=== PATIENT | male | born 1985 | race Caucasian/White ===

== ENCOUNTER 2016-08-16 05:19 | Emergency (ER) | payer OTHER ==
[~2016-08-16] VITALS: Ht 188 cm; Wt 127.2 kg
--- OUTSIDE RECORDS SUMMARY | 2016-08-16 05:25 | XMS REPORT | Continuity of Care Document ---
Author Author [facility] Organization [facility] Address Unknown Phone Unavailable Support Name Relationship Address Phone LAN SAM MD Caregiver [address] [place] [id number] MEERA LONDON MD Caregiver [address] [place] [address] FOSTER MUNIZ MD Caregiver [address] [place] [address] LEIDY CUELLAR Next Of Kin [address] [place] [id number] Insurance Providers Payer Name Policy Number Subscriber Name Relationship [employer] [id number] Zuleika Cuellar 17 Self / Same As Patient Problems No known problems or medical conditions. Medications No known medications. Social History No social history. Hospital Discharge Instructions Patient's Instructions Instructions Instructions Clear liquid diet through 03/22, and on 03/23 may convert to full liquids. Tylenol elixir as directed for pain. Chloraseptic spray as directed for throat irritation. Call or return if experiencing increased difficulty swallowing, chest pain, fever, chills, or other concerns. Activity Instructions As tolerated. Doctor's Appointment F/U in clinic 03/25; call our office tomorrow for appointment. Plan of Care Discharge Date 03/21/15 11:25am Disposition 01 HOME OR SELF-CARE Instructions/Education Provided Clear Liquid Diet (DC) Prescriptions See Medications Section Functional Status No functional status results. Allergies, Adverse Reactions, Alerts Allergen Type Severity Reaction Status Last Updated No Known Drug Allergies Active 03/20/15 Immunizations No immunization records. Vital Signs Acute Vital Signs Vital Response Date/Time Temperature (Fahrenheit) 97.9 Pulse 71 bpm Respirations 16 Height 6 ft 2 in Weight 241 lb Body Mass Index 31.0 kg/m^2 Results Test Source Date Result Interp. Ref. Range Comments Blood Morphology Comment March 20, 2015 6:27pm Normal NORMAL Basophils # (Manual) March 20, 2015 6:27pm 0.1 # Eosinophils # March 20, 2015 6:27pm 1.5 # Monocytes # March 20, 2015 6:27pm 0.5 # Lymphocytes # March 20, 2015 6:27pm 3.8 # Absolute Band Neutrophils March 20, 2015 6:27pm 0.2 # Neutrophils # March 20, 2015 6:27pm 3.7 # Basophils % (Manual) March 20, 2015 6:27pm 1 % N 0-2 Eosinophils % (Manual) March 20, 2015 6:27pm 17 % H 0-4 Monocytes % (Manual) March 20, 2015 6:27pm 5 % N 3-11 Lymphocytes % (Manual) March 20, 2015 6:27pm 38 % N 20-46 Band Neutrophils % March 20, 2015 6:27pm 2 % N 0-6 Segmented Neutrophils % March 20, 2015 6:27pm 37 % L 51-67 Differential Total Cells Counted March 20, 2015 6:27pm 100 Albumin/Globulin Ratio March 20, 2015 6:27pm 1.454 N 1.1-1.8 Albumin March 20, 2015 6:27pm 4.8 g/dL N 3.4-5.0 Total Protein March 20, 2015 6:27pm 8.1 g/dL N 6.4-8.5 Alanine Aminotransferase (ALT/SGPT) March 20, 2015 6:27pm 73 U/L H 30- 65 Aspartate Amino Transf (AST/SGOT) March 20, 2015 6:27pm 45 U/L H 15-37 Alkaline Phosphatase March 20, 2015 6:27pm 61 U/L N 38-126 Total Bilirubin March 20, 2015 6:27pm 0.7 mg/dL N 0.1-1.0 Calcium/Ionized Calcium Ratio March 20, 2015 6:27pm 4.0 mg/dL N 3.8- 4.6 Calcium Level March 20, 2015 6:27pm 9.9 mg/dL N 8.8-10.8 Calculated Osmolality March 20, 2015 6:27pm 277 mosm/L L 280-300 Glucose Level March 20, 2015 6:27pm 102 mg/dL N 70-110 Estimated GFR (Non- March 20, 2015 6:27pm 93.1 Estimat Glomerular Filtration Rate March 20, 2015 6:27pm 112.6 BUN/Creatinine Ratio March 20, 2015 6:27pm 12 N 10-20 Creatinine March 20, 2015 6:27pm 0.95 mg/dL N 0.8-1.5 Blood Urea Nitrogen March 20, 2015 6:27pm 11 mg/dL N 7-18 Anion Gap March 20, 2015 6:27pm 16.8 MEQ/L H 3-15 Carbon Dioxide Level March 20, 2015 6:27pm 26 mmol/L N 22-29 Chloride Level March 20, 2015 6:27pm 105 mmol/L N 98-108 Potassium Level March 20, 2015 6:27pm 4.3 mmol/L N 3.5-5.1 Sodium Level March 20, 2015 6:27pm 144 mmol/L N 135-150 Hematocrit March 20, 2015 6:27pm 44.30 % N 39.00-50.00 Hemoglobin March 20, 2015 6:27pm 15.7 g/dL N 13.5-17.0 Mean Corpuscular Hemoglobin March 20, 2015 6:27pm 31.0 PG N 26.0-34.0 Mean Corpuscular Hemoglobin Concent March 20, 2015 6:27pm 35.4 g/dL N 31.0-37.0 Mean Corpuscular Volume March 20, 2015 6:27pm 87 FL N 80-100 Mean Platelet Volume March 20, 2015 6:27pm 9.6 FL H 6.0-9.5 Platelet Count March 20, 2015 6:27pm 238 10^3uL N 150-450 Red Blood Count March 20, 2015 6:27pm 5.07 10^6uL N 4.50-5.50 Red Cell Distribution Width March 20, 2015 6:27pm 12.3 % N 11.8-15.6 White Blood Count March 20, 2015 6:27pm 9.91 10^3uL N 4.0-11.0 Serum Alcohol May 13, 2014 5:15am < 10.0 mg/dL L 10-80 Lab Scanned Report May 15, 2014 10:08am [facility] [id number] Procedures No known history of procedures. Encounters Encounter Location Date/Time Discharged Inpatient [facility] 03/20/15 9:15pm
--- OUTSIDE RECORDS SUMMARY | 2016-08-16 05:27 | XMS REPORT | Continuity of Care Document ---
Author Author [facility] Organization [facility] Address Unknown Phone Unavailable Support Name Relationship Address Phone LAN SAM MD Caregiver [address] [place] [phone] MEERA LONDON MD Caregiver [address] [place] [address] FOSTER MUNIZ MD Caregiver [address] [place] [address] LEIDY CUELLAR Next Of Kin [address] [place] [id number] Insurance Providers Payer Name Policy Number Subscriber Name Relationship [employer] [id number] Zuleika Cuellar 17 Self / Same As [...] Report May 15, 2014 10:08am [facility] [id number] Procedures No known history of procedures. Encounters Encounter Location Date/Time Discharged Inpatient [facility] 03/20/15 9:15pm
[2016-08-16] MEDS ORDERED: SUMA25TA4 PO (05:42)
[2016-08-16] MEDS ORDERED: diphenhydrAMINE 50 MG/ML INJ (BENADRYL) IM ONE ×2 (05:45→07:25)
[2016-08-16] MEDS ORDERED: PROMETHAZINE 25 MG/ML (PHENERGAN) 1 ML VIAL IM ONE (05:45)
[2016-08-16] MEDS ORDERED: KETOROLAC 60 MG/2 ML (TORADOL) VIAL IM ONE (05:45)
--- NOTE | 2016-08-16 06:28 | Diagnostic Imaging Report ---
PROCEDURE: CT head without contrast. TECHNIQUE: Multiple contiguous axial images were obtained through the brain without the use of intravenous contrast. INDICATION: Headache, altered mental status The ventricles are normal in size, shape and position. There are no masses or hemorrhages. There are no extra-axial fluid collections. Impression: Negative CT head Dictated by: Dictated on workstation # [id number]
[2016-08-16] MEDS ORDERED: HALOPERIDOL 5 MG/ML (HALDOL) 1 ML AMP IM ONE (06:55)
--- NOTE | 2016-08-16 07:03 | NUR ---
Report received from Kitty KELLER
[2016-08-16] MEDS ORDERED: LORazepam 2 MG/ML (ATIVAN) 1 ML VIAL IM ONE (07:25)
[2016-08-16 07:53] VITALS: BP 118/63
== END 2016-08-16 07:52 | disposition home or self-care (01) ==
LOC: ED 05:23
DX: R51 Headache (principal)
CPT/HCPCS: 70450; 96372; 99282; J1200; J1630; J1885; J2060; J2550; 99283